=== PATIENT | female | born 1960 | race Caucasian/White ===

== ENCOUNTER 2017-03-05 12:52 | Inpatient (IN) | payer MEDICAID ==
[~2017-03-05] VITALS: Ht 162.6 cm; Wt 75.0 kg
[~2017-03-05 12:52] MED LIST: AZIT250T89 PO; CEFD300C37 PO; CITA40TA12 HOMEMEDPO; GABA300C10 HOMEMEDPO; GLIP10TA13 HOMEMEDPO; GLIP10TA13 PO; HYDR-3307 PO; INSU100V12 HOMEINJ; INSU100V8 SQ; LISI-170 HOMEMEDPO; LISI40TA PO; LORA2TAB HOMEMEDPO; OXYC-229 HOMEMEDPO; PREG100C PO; SULF1TAB24 PO; VARE1TAB21 PO
[2017-03-05] MEDS ORDERED: SODIUM CHLORIDE 0.9% 1,000 ML IV ONE (12:57)
[2017-03-05] MEDS ORDERED: SODIUM CHLORIDE FLUSH 10ML SYR IVF ONE (13:00)
[2017-03-05 13:32] LABS: ACETAMINOPHEN 5 mcg/mL (10-30); ASPARTATE AMINO TRANSFERASE 15 U/L (15-37); BLOOD UREA NITROGEN 77 mg/dL (7-18)
[2017-03-05 13:39] LABS: IS PT STATUS REG ER OR PRE ER? YES
[2017-03-05] MEDS ORDERED: DEXTROSE 50%, 50ML SYRINGE ONE (14:55)
[2017-03-05] MEDS ORDERED: DEXTROSE 50%, 50ML SYRINGE IVPush ONE (15:00)
[2017-03-05] MEDS ORDERED: LACTATED RINGERS 1,000 ML IV SCH (16:30)
[2017-03-05] MEDS ORDERED: SODIUM CHLORIDE 0.9% 1,000 ML IV SCH (17:15)
[2017-03-05] MEDS ORDERED: BISACODYL 10 MG SUPP PR PRN (17:30)
[2017-03-05] MEDS ORDERED: POLYETHYLENE GLYCOL 17 GM PACKET PO PRN (17:30)
[2017-03-05] MEDS: INSULIN REGULAR 100 UNITS/ML, 3ML VIAL SQ-INSULIN SCH ×2 (18:00→21:00)
[2017-03-05] MEDS ORDERED: NALOXONE 0.4 MG/ML, 1ML IVPush ONE ×2 (18:00→22:30)
[2017-03-05] MEDS ORDERED: HYDR-3307 PO (18:01)
[2017-03-05 18:18] LABS: ABG COLLECTION SITE RIGHT RADIAL; COLLATERAL CIRCULATION TESTING NORMAL
[2017-03-05] MEDS: INSULIN ASPART PROTAMINE MC SCH (19:00)
[2017-03-05] MEDS: [UNRECOGNIZED DRUG - OTHER] MC SCH (19:00)
[2017-03-05] MEDS: INSULIN ASPART MC SCH (19:00)
[2017-03-05 20:58] VITALS: BP 136/74
[2017-03-05] MEDS ORDERED: INSULIN ASPART 70/30, VIAL HOMEINJ SCH (21:00)
[2017-03-05] MEDS: D5%-0.45NACL+KCL 20MEQ 1,000 ML IV SCH (21:35)
[2017-03-05] MEDS: HEPARIN 5,000 UNITS/ML, 1ML SQ SCH (21:36)
[2017-03-05] MEDS: ACETAMINOPHEN 325 MG TABLET PO PRN (21:38)
[2017-03-05 22:00] VITALS: BP 136/74
[2017-03-05] MEDS ORDERED: DEXTROSE 50%, 50ML SYRINGE IVPush PRN (22:30)
[2017-03-05] MEDS ORDERED: DEXTROSE 4 GM TAB.CHEW PO PRN (22:30)
[2017-03-05] MEDS ORDERED: GLUCAGON 1 MG IM PRN (22:30)
[2017-03-05] MEDS: SODIUM CHLORIDE FLUSH 10ML SYR IVF SCH (22:43)
[2017-03-06 01:52] VITALS: BP 122/68
[2017-03-06] MEDS: [UNRECOGNIZED DRUG - OTHER] MC SCH ×3 (03:00→17:07)
[2017-03-06] MEDS: INSULIN ASPART MC SCH ×3 (03:00→17:07)
[2017-03-06] MEDS: INSULIN ASPART PROTAMINE MC SCH ×3 (03:00→17:07)
[2017-03-06 04:23] LABS: PATH.CAST-FLAG NOT PRESENT; SPERM-FLAG NOT PRESENT; SRC-FLAG NOT PRESENT; XTAL-FLAG NOT PRESENT; YLC-FLAG NOT PRESENT
[2017-03-06 05:34] LABS: BLOOD UREA NITROGEN 70 mg/dL (7-18)
[2017-03-06 05:38] LABS: ASPARTATE AMINO TRANSFERASE 22 U/L (15-37); TOTAL IRON BINDING CAPACITY 281 mcg/dL (250-450)
[2017-03-06] MEDS: D5%-0.45NACL+KCL 20MEQ 1,000 ML IV SCH (05:52)
[2017-03-06] MEDS: HEPARIN 5,000 UNITS/ML, 1ML SQ SCH ×3 (05:52→23:11)
[2017-03-06] MEDS: INSULIN REGULAR 100 UNITS/ML, 3ML VIAL SQ-INSULIN SCH ×4 (07:00→21:00)
[2017-03-06 07:04] VITALS: BP 124/74
[2017-03-06] MEDS: SODIUM CHLORIDE FLUSH 10ML SYR IVF SCH ×2 (09:00→23:11)
[2017-03-06] MEDS: INSULIN DETEMIR 100 UNITS/ML, PEN SQ-INSULIN SCH ×2 (12:29→21:00)
[2017-03-06 13:01] LABS: DAU SCREEN DISCLAIMER
[2017-03-06 13:30] VITALS: BP 150/75
[2017-03-06 13:30] LABS: PATH.CAST-FLAG NOT PRESENT; SPERM-FLAG NOT PRESENT; SRC-FLAG NOT PRESENT; XTAL-FLAG NOT PRESENT; YLC-FLAG NOT PRESENT
[2017-03-06 13:37] LABS: POTASSIUM,URINE RANDOM 8 mmol/L
[2017-03-06] MEDS: ACETAMINOPHEN 325 MG TABLET PO PRN ×2 (13:47→23:11)
[2017-03-06 19:15] VITALS: BP 136/76
[2017-03-07 01:25] VITALS: BP 147/78
[2017-03-07] MEDS: [UNRECOGNIZED DRUG - OTHER] MC SCH ×3 (03:00→18:12)
[2017-03-07] MEDS: INSULIN ASPART MC SCH ×3 (03:00→18:12)
[2017-03-07] MEDS: INSULIN ASPART PROTAMINE MC SCH ×3 (03:00→18:12)
[2017-03-07 05:33] LABS: BLOOD UREA NITROGEN 62 mg/dL (7-18)
[2017-03-07 06:55] VITALS: BP 185/73
[2017-03-07] MEDS: INSULIN REGULAR 100 UNITS/ML, 3ML VIAL SQ-INSULIN SCH ×4 (07:00→21:02)
[2017-03-07] MEDS: HEPARIN 5,000 UNITS/ML, 1ML SQ SCH ×2 (08:54→17:05)
[2017-03-07] MEDS: AMLODIPINE 5 MG TABLET PO SCH ×2 (08:55→21:01)
[2017-03-07] MEDS: SODIUM CHLORIDE FLUSH 10ML SYR IVF SCH ×2 (09:00→21:02)
[2017-03-07] MEDS: ACETAMINOPHEN 325 MG TABLET PO PRN (12:31)
[2017-03-07] MEDS: DOCUSATE 100 MG CAPSULE PO PRN (12:31)
[2017-03-07 14:21] VITALS: BP 143/84
[2017-03-07 19:32] VITALS: BP 176/90
[2017-03-08] MEDS: HEPARIN 5,000 UNITS/ML, 1ML SQ SCH ×3 (01:15→17:09)
[2017-03-08 01:16] VITALS: BP 160/82
[2017-03-08] MEDS: [UNRECOGNIZED DRUG - OTHER] MC SCH ×3 (02:28→19:11)
[2017-03-08] MEDS: INSULIN ASPART MC SCH ×3 (02:28→19:11)
[2017-03-08] MEDS: INSULIN ASPART PROTAMINE MC SCH ×3 (02:28→19:11)
[2017-03-08 06:27] LABS: BLOOD UREA NITROGEN 54 mg/dL (7-18)
[2017-03-08] MEDS: INSULIN REGULAR 100 UNITS/ML, 3ML VIAL SQ-INSULIN SCH ×4 (07:00→20:24)
[2017-03-08 07:32] VITALS: BP_SYST 127; BP_SYST 131; BP_DIAS 60; BP_DIAS 74
[2017-03-08] MEDS: AMLODIPINE 5 MG TABLET PO SCH ×2 (09:00→20:19)
[2017-03-08] MEDS: SODIUM CHLORIDE FLUSH 10ML SYR IVF SCH ×2 (09:00→20:19)
[2017-03-08] MEDS: ONDANSETRON ODT 4 MG PO PRN ×2 (10:57→20:03)
[2017-03-08 14:50] VITALS: BP 133/80
[2017-03-08 18:59] VITALS: BP 160/88
[2017-03-08] MEDS: DIPHENHYDRAMINE 25 MG CAPSULE PO PRN (20:19)
[2017-03-08] MEDS ORDERED: DIPHENHYDRAMINE 50 MG/ML, 1ML IVPush ONE (23:00)
[2017-03-09] MEDS: HEPARIN 5,000 UNITS/ML, 1ML SQ SCH ×3 (01:07→17:59)
[2017-03-09 01:28] VITALS: BP 150/88
[2017-03-09] MEDS: [UNRECOGNIZED DRUG - OTHER] MC SCH ×3 (03:00→19:00)
[2017-03-09] MEDS: INSULIN ASPART PROTAMINE MC SCH ×3 (03:00→19:00)
[2017-03-09] MEDS: INSULIN ASPART MC SCH ×3 (03:00→19:00)
[2017-03-09 05:25] LABS: BLOOD UREA NITROGEN 46 mg/dL (7-18)
[2017-03-09 05:29] LABS: ASPARTATE AMINO TRANSFERASE 12 U/L (15-37); TOTAL IRON BINDING CAPACITY 289 mcg/dL (250-450)
[2017-03-09] MEDS: ONDANSETRON ODT 4 MG PO PRN ×2 (06:26→21:55)
[2017-03-09] MEDS: INSULIN REGULAR 100 UNITS/ML, 3ML VIAL SQ-INSULIN SCH ×4 (07:00→21:57)
[2017-03-09 07:32] VITALS: BP 146/88
[2017-03-09] MEDS: SODIUM CHLORIDE FLUSH 10ML SYR IVF SCH ×2 (08:12→21:55)
[2017-03-09] MEDS: AMLODIPINE 5 MG TABLET PO SCH ×2 (08:53→21:56)
[2017-03-09] MEDS ORDERED: ERGOCALCIFEROL 50,000 UNIT CAPSULE PO SCH (10:00)
[2017-03-09] MEDS: DOCUSATE 100 MG CAPSULE PO PRN (11:00)
[2017-03-09 14:00] VITALS: BP 155/84
[2017-03-09] MEDS: DIPHENHYDRAMINE 25 MG CAPSULE PO PRN (16:40)
[2017-03-09 19:16] VITALS: BP 155/81
[2017-03-10 01:34] VITALS: BP 147/93
[2017-03-10] MEDS: HEPARIN 5,000 UNITS/ML, 1ML SQ SCH ×2 (01:51→09:17)
[2017-03-10] MEDS: DIPHENHYDRAMINE 25 MG CAPSULE PO PRN (01:51)
[2017-03-10] MEDS: [UNRECOGNIZED DRUG - OTHER] MC SCH (03:00)
[2017-03-10] MEDS: INSULIN ASPART PROTAMINE MC SCH (03:00)
[2017-03-10] MEDS: INSULIN ASPART MC SCH (03:00)
[2017-03-10 06:57] VITALS: BP 137/86
[2017-03-10] MEDS ORDERED: SODIUM POLYSTYRENE SULFONATE ORAL SUSP PO ONE (08:30)
[2017-03-10] MEDS: INSULIN REGULAR 100 UNITS/ML, 3ML VIAL SQ-INSULIN SCH ×2 (08:33→12:19)
[2017-03-10 08:44] LABS: BLOOD UREA NITROGEN 45 mg/dL (7-18)
[2017-03-10] MEDS: AMLODIPINE 5 MG TABLET PO SCH (09:17)
[2017-03-10] MEDS: SODIUM CHLORIDE FLUSH 10ML SYR IVF SCH (09:18)
[2017-03-10] MEDS ORDERED: PREGABALIN 100 MG CAPSULE PO SCH (10:00)
[2017-03-10] MEDS ORDERED: GLIP5TAB10 PO (11:39)
[2017-03-10] MEDS ORDERED: ERGO500017 PO (11:39)
[2017-03-10] MEDS ORDERED: POLY17PO5 PO (11:39)
[2017-03-10] MEDS ORDERED: AMLO5TAB2 PO (11:39)
[2017-03-10 12:00] VITALS: BP 144/82
== END 2017-03-10 14:48 | disposition home or self-care (01) | DRG 682 ==
LOC: ED 14:31 → EDIP 15:32 → 4WST 18:38 → DCLOUNGE 03-10 13:37
PROVIDERS: ADMIT Hospitalist; ATTEND Hospitalist
DX: N17.9 Acute kidney failure, unspecified (principal); G92 Toxic encephalopathy; M62.82 Rhabdomyolysis; E87.2 Acidosis; F11.20 Opioid dependence, uncomplicated; E11.42 Type 2 diabetes mellitus with diabetic polyneuropathy; E11.22 Type 2 diabetes mellitus with diabetic chronic kidney disease; E11.649 Type 2 diabetes mellitus with hypoglycemia without coma; F32.9 Major depressive disorder, single episode, unspecified; I12.9 Hypertensive chronic kidney disease with stage 1 through stage 4 chronic kidney disease, or unspecified chronic kidney disease; F17.210 Nicotine dependence, cigarettes, uncomplicated; E66.9 Obesity, unspecified; N18.2 Chronic kidney disease, stage 2 (mild); E78.5 Hyperlipidemia, unspecified; D64.9 Anemia, unspecified; E87.70 Fluid overload, unspecified; E87.5 Hyperkalemia; E83.51 Hypocalcemia; D72.829 Elevated white blood cell count, unspecified; F13.10 Sedative, hypnotic or anxiolytic abuse, uncomplicated; K59.00 Constipation, unspecified; J44.9 Chronic obstructive pulmonary disease, unspecified; R29.6 Repeated falls; W18.30XA Fall on same level, unspecified, initial encounter; Z82.49 Family history of ischemic heart disease and other diseases of the circulatory system; Z83.3 Family history of diabetes mellitus; Z87.01 Personal history of pneumonia (recurrent); Z79.4 Long term (current) use of insulin; Z90.49 Acquired absence of other specified parts of digestive tract; Z90.89 Acquired absence of other organs; Z79.84 Long term (current) use of oral hypoglycemic drugs; Z79.899 Other long term (current) drug therapy; Z89.412 Acquired absence of left great toe; Z71.51 Drug abuse counseling and surveillance of drug abuser; Y93.89 Activity, other specified; Y92.89 Other specified places as the place of occurrence of the external cause; Y99.8 Other external cause status; Z79.1 Long term (current) use of non-steroidal anti-inflammatories (NSAID); Z68.28 Body mass index [BMI] 28.0-28.9, adult
CPT/HCPCS: 36415; 36600; 71010; 76770; 80048; 80053; 80307; 80329; 81001; 82043; 82140; 82306; 82436; 82550; 82570; 82728; 82803; 82962; 83540; 83550; 83735; 83880; 83970; 84100; 84133; 84145; 84156; 84300; 84443; 84484; 85025; 87040; 87086; 93005; 96361; 96374; J1644; J1815; J2310; Q0162; G0480; J1200; J3480; J7030; Q0163

== ENCOUNTER 2019-05-21 03:46 | Inpatient (IN) | payer MEDICARE, MEDICAID ==
[~2019-05-21] VITALS: Ht 162.6 cm; Wt 76.8 kg
[2019-05-21 08:33] VITALS: BP 173/82
== END 2019-05-21 13:10 | disposition home or self-care (01) | DRG 640 ==
LOC: ED 05:40 → 4EST 05:48 → ED 05:50
PROVIDERS: ADMIT Internal Medicine; ATTEND Internal Medicine
PROC: 5A1D70Z Performance of Urinary Filtration, Intermittent, Less than 6 Hours Per Day (ICD-10-PCS; principal; 2019-05-21)
DX: E87.70 Fluid overload, unspecified (principal); N18.6 End stage renal disease; I12.0 Hypertensive chronic kidney disease with stage 5 chronic kidney disease or end stage renal disease; E11.22 Type 2 diabetes mellitus with diabetic chronic kidney disease; R31.29 Other microscopic hematuria; K21.9 Gastro-esophageal reflux disease without esophagitis; I16.0 Hypertensive urgency; F17.210 Nicotine dependence, cigarettes, uncomplicated; E83.51 Hypocalcemia; D72.829 Elevated white blood cell count, unspecified; F41.9 Anxiety disorder, unspecified; M19.90 Unspecified osteoarthritis, unspecified site; F32.9 Major depressive disorder, single episode, unspecified; Z87.01 Personal history of pneumonia (recurrent); Z99.2 Dependence on renal dialysis; Z83.3 Family history of diabetes mellitus; Z79.4 Long term (current) use of insulin; Z90.49 Acquired absence of other specified parts of digestive tract
CPT/HCPCS: 36415; 71045; 80048; 81001; 82040; 82962; 83880; 84484; 85025; 87086; 90935; 93005; 99285; G0378; Q0163

== ENCOUNTER 2021-02-15 14:22 | Observation (INO) | payer MEDICARE, MEDICAID ==
[~2021-02-15] VITALS: Ht 162.6 cm; Wt 86.1 kg
[~2021-02-15 14:22] MED LIST changes: +AMLO-150 PO; +CLON0.1T22 PO; +ERGO500017 PO; +GLIP5TAB10 PO; +HYDR-3248 PO; -HYDR-3307 PO; -LISI40TA PO; +LISI40TA9 PO; -OXYC-229 HOMEMEDPO; +OXYC-380 HOMEMEDPO; +POLY17PO5 PO; +SEVE800T8 PO; +metoprolol; +nifedipine
[2021-02-15 14:47] LABS: BASOPHILS % (AUTO) 2 % (0-1); EOSINOPHILS % (AUTO) 6 % (1-7); LYMPHOCYTES % (AUTO) 26 % (22-44); MEAN CORPUSCULAR HEMOGLOBIN 30.9 pg (27.0-34.8); MEAN CORPUSCULAR HGB CONC 33.3 g/dL (32.4-35.8); MEAN PLATELET VOLUME 6.9 fL (7.4-10.4); MONOCYTES % (AUTO) 5 % (2-9); NEUTROPHILS % (AUTO) 62 % (42-75); PLATELET COUNT 371 x10^3/uL (130-400); RED BLOOD COUNT 3.67 x10^6/uL (3.82-5.3); RED CELL DISTRIBUTION WIDTH 16.2 % (9.6-15.2)
[2021-02-15 14:57] LABS: ALANINE AMINOTRANSFERASE 18 U/L (12-78); ALBUMIN 3.7 g/dL (3.4-5.0); CALCIUM 7.8 mg/dL (8.5-10.1); CHLORIDE 96 mmol/L (98-107); CREATININE 9.89 mg/dL (0.55-1.02)
[2021-02-15 15:02] LABS: ALKALINE PHOSPHATASE 113 U/L (45-117); BILIRUBIN,TOTAL 0.4 mg/dL (0.2-1.0); TOTAL PROTEIN 8.2 g/dL (6.4-8.2); TROPONIN I < 0.015 ng/mL (0.000-0.045)
[2021-02-15 15:10] LABS: ANION GAP 11 mmol/L (5-15)
[2021-02-15 15:11] LABS: MD SCAN
--- NOTE | 2021-02-15 15:30 | NUR ---
PT TO ROOM 31 VIA WC.
--- NOTE | 2021-02-15 15:43 | NUR ---
PT PLACED ON ALL ROOM MONITORING. OXYGEN PLACED AT 2LITER VIA NC PER REQUEST OF PT FOR COMFORT. PT FROM [place], STATES HAY FEVER ALLERGY WORSE HERE AND HAS STUFFY NOSE. ATTEMPT TO START IV ON R ARM, L ARM WITH DIALYSIS FISTULA. PT STATES SHE MISSED DIALYSIS YESTERDAY, SCHEDULE D/T BEING HERE FOR .
--- NOTE | 2021-02-15 15:52 | NUR ---
SISTER JEFFREY [phone] (STAYING AT [facility] IN ARE[facility]).
[2021-02-15] MEDS ORDERED: LEVE100S6 PO (15:56)
[2021-02-15] MEDS ORDERED: CLOP75TA52 PO (15:56)
[2021-02-15] MEDS ORDERED: NIFE20CA PO (15:56)
[2021-02-15] MEDS ORDERED: CITA20TA6 PO (15:56)
[2021-02-15] MEDS ORDERED: MIRT7.5T8 PO (15:59)
[2021-02-15] MEDS ORDERED: TRAZ-175 PO (15:59)
[2021-02-15] MEDS ORDERED: DEXTROSE 50%, 50ML SYRINGE IVPush ONE ×2 (16:00→18:30)
[2021-02-15] MEDS ORDERED: INSULIN REGULAR 100 UNITS/ML, 3ML VIAL IVPush ONE (16:00)
[2021-02-15] MEDS ORDERED: SODIUM BICARB 8.4%, 50ML SYRINGE IVPush ONE (16:00)
--- NOTE | 2021-02-15 16:00 | NUR ---
Report received from meal break RN, [place], and care assumed. Pt med orders present.
[2021-02-15] MEDS ORDERED: SODIUM ZIRCONIUM CYCLOSILICATE 10 GM PO ONE (16:30)
[2021-02-15] MEDS ORDERED: SODIUM BICARB 8.4%, 50ML SYRINGE ONE (16:34)
[2021-02-15] MEDS ORDERED: DEXTROSE 50%, 50ML SYRINGE ONE ×2 (16:34→18:26)
[2021-02-15] MEDS ORDERED: INSULIN SINGLE DOSE, ER ONE (16:35)
[2021-02-15] MEDS ORDERED: CALCIUM CHLORIDE 10%, 10ML SYR ONE (16:42)
--- NOTE | 2021-02-15 16:45 | NUR ---
IV and PO meds give as ordered to help with hyperkalemia. Hospitalist at bedside for assessment at this time. willow machine tender on phone call asking about ability to set up for stat dialysis in ED. Information provided and phone number obtained to call when admit status is more updated. AGUEDA Harrison [phone].
[2021-02-15] MEDS ORDERED: CALCIUM CHLORIDE 10%, 10ML SYR IVPush ONE (17:00)
--- NOTE | 2021-02-15 17:25 | NUR ---
Noted that bed request for floor room was made at 1720. Awaiting room assignment.
[2021-02-15] MEDS ORDERED: ZOLPIDEM 5MG TABLET PO PRN (17:30)
[2021-02-15] MEDS ORDERED: DOCUSATE 100 MG CAPSULE PO PRN (17:30)
[2021-02-15] MEDS ORDERED: ENALAPRILAT 1.25 MG/ML, 2ML IVPush PRN (17:30)
[2021-02-15] MEDS ORDERED: ACETAMINOPHEN 325 MG TABLET PO PRN (17:30)
[2021-02-15] MEDS ORDERED: ONDANSETRON 2MG/ML, 2ML IVPush PRN (17:30)
[2021-02-15] MEDS ORDERED: morphine SULFATE 10 MG/ML, 1ML IVPush PRN (17:30)
[2021-02-15] MEDS: HEPARIN 5,000 UNITS/ML, 1ML SQ SCH (17:30)
--- NOTE | 2021-02-15 17:40 | NUR ---
Information Systems Director at bedside for assessment of pt at this time.
[2021-02-15] MEDS ORDERED: HYDROcodone/APAP 5/325 TABLET ONE (17:48)
[2021-02-15] MEDS: HYDROcodone/APAP 5/325 TABLET PO PRN (17:51)
--- NOTE | 2021-02-15 17:54 | NUR ---
Pt medicated for continued c/o severe pain from swelling in legs and generalized over her whole body. Pain rated 9/10 at this time and PRN pain med given , see eMAR.
--- NOTE | 2021-02-15 18:18 | NUR ---
Report called to AGUEDA Lane and pt readied for transfer to floor.
--- NOTE | 2021-02-15 18:29 | NUR ---
FSBS assessed prior to transfer to floor secondary to c/o shakiness and hot flash. Noted to be low at 44. OJ given and ERP notified with orders received. 1/2 amp of D50 given IVP now.
--- NOTE | 2021-02-15 18:32 | NUR ---
AGUEDA Lane on tele floor called and updated about FSBS and care to rectify findings.
--- NOTE | 2021-02-15 18:42 | NUR ---
Repeat FSBS assessed with good effect noted from treatment of low blood sugar. pharmacy tech customer service at bedside for transport to floor. VS unchanged and no effect noted from [place] admin as yet per pt on reassessment.
[2021-02-15] MEDS ORDERED: LIDOCAINE/PRILOCAINE CRM W/TEG 5GM TP ONE (19:00)
[2021-02-15] MEDS ORDERED: DIPHENHYDRAMINE 50 MG/ML, 1ML IVPush ONE (20:00)
[2021-02-15] MEDS ORDERED: MIRTAZAPINE 15 MG TABLET PO SCH (21:00)
[2021-02-15] MEDS ORDERED: NIFEDIPINE 60 MG PO SCH (21:00)
[2021-02-15 23:47] VITALS: BP 177/79
[2021-02-16] MEDS: LEVETIRACETAM 100 MG/ML ORAL SOL PO SCH ×2 (00:03→08:48)
[2021-02-16 01:44] VITALS: BP 189/76
[2021-02-16] MEDS: HYDROcodone/APAP 5/325 TABLET PO PRN ×2 (01:52→06:03)
[2021-02-16] MEDS: HEPARIN 5,000 UNITS/ML, 1ML SQ SCH ×2 (01:52→08:49)
[2021-02-16 03:00] VITALS: BP 195/77
[2021-02-16] MEDS ORDERED: hydrALAzine 20 MG/ML, 1ML IV ONE (03:30)
[2021-02-16 03:52] VITALS: BP 178/80
[2021-02-16 05:28] LABS: ALBUMIN 3.4 g/dL (3.4-5.0); ANION GAP 9 mmol/L (5-15); CALCIUM 8.4 mg/dL (8.5-10.1); CHLORIDE 93 mmol/L (98-107); CREATININE 5.67 mg/dL (0.55-1.02)
[2021-02-16 05:29] LABS: BASOPHILS % (AUTO) 1 % (0-1); EOSINOPHILS % (AUTO) 6 % (1-7); LYMPHOCYTES % (AUTO) 35 % (22-44); MEAN CORPUSCULAR HEMOGLOBIN 30.9 pg (27.0-34.8); MEAN CORPUSCULAR HGB CONC 33.8 g/dL (32.4-35.8); MONOCYTES % (AUTO) 6 % (2-9); NEUTROPHILS % (AUTO) 51 % (42-75); PLATELET COUNT 341 x10^3/uL (130-400); RED BLOOD COUNT 3.51 x10^6/uL (3.82-5.3); RED CELL DISTRIBUTION WIDTH 15.9 % (9.6-15.2)
[2021-02-16 05:33] LABS: MD NO
[2021-02-16 07:35] VITALS: BP 176/70
[2021-02-16] MEDS ORDERED: ACETAMINOPHEN 325 MG TABLET PO PRN (08:30)
[2021-02-16] MEDS ORDERED: HYDROcodone/APAP 5/325 TABLET PO PRN (08:30)
[2021-02-16] MEDS ORDERED: CLOPIDOGREL 75 MG TABLET PO SCH (09:00)
[2021-02-16] MEDS ORDERED: CITALOPRAM 20 MG TABLET PO SCH (09:00)
[2021-02-16] MEDS ORDERED: DIPHENHYDRAMINE 25 MG CAPSULE PO PRN (10:30)
[2021-02-16 11:42] LABS: MICROSCOPIC INDICATED
[2021-02-16] MEDS ORDERED: HYDR-3341 PO (12:37)
[2021-02-16] MEDS ORDERED: NIFEDIPINE 60 MG PO SCH (13:09)
== END 2021-02-16 13:36 | disposition home or self-care (01) ==
LOC: ED 17:25 → EDIP 17:39 → 4WST 18:48 → DCLOUNGE 02-16 13:14
PROVIDERS: ADMIT Internal Medicine; ATTEND Internal Medicine
DX: E87.5 Hyperkalemia (principal); E87.1 Hypo-osmolality and hyponatremia; E87.8 Other disorders of electrolyte and fluid balance, not elsewhere classified; I12.0 Hypertensive chronic kidney disease with stage 5 chronic kidney disease or end stage renal disease; E11.22 Type 2 diabetes mellitus with diabetic chronic kidney disease; N18.6 End stage renal disease; D63.1 Anemia in chronic kidney disease; E11.649 Type 2 diabetes mellitus with hypoglycemia without coma; E11.65 Type 2 diabetes mellitus with hyperglycemia; I25.10 Atherosclerotic heart disease of native coronary artery without angina pectoris; E66.9 Obesity, unspecified; G47.30 Sleep apnea, unspecified; F32.9 Major depressive disorder, single episode, unspecified; Z99.2 Dependence on renal dialysis; Z95.5 Presence of coronary angioplasty implant and graft; Z87.891 Personal history of nicotine dependence; Z87.442 Personal history of urinary calculi; Z79.899 Other long term (current) drug therapy
CPT/HCPCS: 36415; 80053; 80069; 81001; 82962; 83036; 84484; 85025; 86704; 86706; 87086; 87340; 93005; 96372; 96374; 96375; 96376; 99291; G0378; J0360; J1200; J1644; J1815; J2405; Q0163; G0257